=== PATIENT | male | born 1985 | race Caucasian/White ===

== ENCOUNTER 2017-08-26 15:44 | Emergency (ER) | payer SELFPAY ==
[2017-08-26 15:49] VITALS: BP 129/94
[2017-08-26] MEDS ORDERED: Ondansetron ODT TAB* 4 MG SL ONE (16:41)
[2017-08-26] MEDS ORDERED: HYDROcodone/ACETAMIN 5-325 MG* 1 TAB PO ONE ×2 (16:41→17:24)
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
== END 2017-08-26 17:40 | disposition home or self-care (01) ==
LOC: ED 15:44
DX: S01.01XA Laceration without foreign body of scalp, initial encounter (principal); R51 Headache; F17.210 Nicotine dependence, cigarettes, uncomplicated; W22.8XXA Striking against or struck by other objects, initial encounter; Y93.9 Activity, unspecified; Y92.9 Unspecified place or not applicable
CPT/HCPCS: 70450; 99282; A9270-GY

== ENCOUNTER 2017-09-03 18:25 | Emergency (ER) | payer SELFPAY ==
[2017-09-03 18:53] VITALS: BP 128/94
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
== END 2017-09-03 19:38 | disposition home or self-care (01) ==
LOC: ED 18:25
DX: S01.01XD Laceration without foreign body of scalp, subsequent encounter (principal); W20.8XXD Other cause of strike by thrown, projected or falling object, subsequent encounter; Z88.1 Allergy status to other antibiotic agents; F12.90 Cannabis use, unspecified, uncomplicated; F17.210 Nicotine dependence, cigarettes, uncomplicated

== ENCOUNTER 2018-11-22 08:34 | Emergency (ER) | payer SELFPAY ==
--- NOTE | 2018-11-22 09:16 | ED ---
Throat Pain/Nasal Congestion - HPI Summary HPI Summary: Pt is a 33 y/o male who presents to the ED c/o sore throat. His sx began 6 days ago and have been worsening. Pt first presented with sudden sharp throat pain, rated an 8/10 in severity. He also c/o congestion, wet cough, hoarseness, diaphoresis, chills, sinus pressure, and URRUTIA. Pt notes that the URRUTIA feels like it is radiating from his frontal sinuses. He also reports that he constantly feels like he is about to sneeze. Pt has been taking Dayquil and Theraflu with minimal relief. He denies any smoking. - History of Current Complaint Chief Complaint: EDFluSymptoms Time Seen by Provider: 11/22/18 08:54 Hx Obtained From: Patient Onset/Duration: Sudden Onset, Lasting Days - 6, Worse Since Severity: Severe - 8/10 Associated Signs And Symptoms: Positive: Hoarseness, Sinus Discomfort Cough: Productive - Allergies/Home Medications Allergies/Adverse Reactions: Allergies Allergy/AdvReac Type Severity Reaction Status Date / Time clindamycin Allergy GI Upset Verified 11/22/18 08:41 PMH/Surg Hx/FS Hx/Imm Hx Endocrine/Hematology History: Denies: Hx Diabetes, Hx Thyroid Disease Cardiovascular History: Denies: Hx Hypertension, Hx Pacemaker/ICD Respiratory History: Denies: Hx Asthma, Hx Chronic Obstructive Pulmonary Disease (COPD) GI History: Denies: Hx Ulcer History: Denies: Hx Dialysis, Hx Renal Disease Sensory History: Denies: Hx Hearing Aid Psychiatric History: Denies: Hx Panic Disorder - Immunization History Immunizations Up to Date: Yes Infectious Disease History: No Infectious Disease History: Denies: Hx Hepatitis, Hx Human Immunodeficiency Virus (HIV), History Other Infectious Disease, Traveled Outside the [place] in Last 30 Days - Family History Known Family History: Negative: Hypertension, Diabetes - Social History Alcohol Use: Daily Alcohol Amount: 1-2 beers Hx Substance Use: Yes Substance Use Type: Reports: None Substance Use Comment - Amount & Last Used: occassionally Hx Tobacco Use: No Smoking Status (MU): Never Smoked Tobacco Review of Systems Positive: Chills, Skin Diaphoresis Positive: Sore Throat, Other - congestion, sinus pressure, hoarseness Positive: Cough - wet Positive: Headache All Other Systems Reviewed And Are Negative: Yes Physical Exam - Summary Physical Exam Summary: Appearance: The patient is well-nourished in no acute distress and in no acute pain. Skin: The skin is warm and dry and skin color reflects adequate perfusion. HEENT: The head is normocephalic and atraumatic. The pupils are equal and reactive. The conjunctivae are clear and without drainage. Nares are congestion. Mouth reveals moist mucous membranes and the throat is erythematous without exudate. The external ears are intact. The ear canals are patent and without drainage. The tympanic membranes are intact. Neck: The neck is supple with full range of motion and non-tender. There are no carotid bruits. There is no neck vein distension. There is no lymphadenopathy. Respiratory: Chest is non-tender. Lungs are clear to auscultation and breath sounds are symmetrical and equal. Cardiovascular: Heart is regular rate and rhythm. There is no murmur or rub auscultated. There is no peripheral edema and pulses are symmetrical and equal. Abdomen: The abdomen is soft and non-tender. There are normal bowel sounds heard in all four quadrants and there is no organomegaly palpated. Musculoskeletal: There is no back tenderness noted. Extremities are non-tender with full range of motion. There is good capillary refill. There is no peripheral edema or calf tenderness elicited. Neurological: Patient is alert and oriented to person, place and time. The patient has symmetrical motor strength in all four extremities. Cranial nerves are grossly intact. Deep tendon reflexes are symmetrical and equal in all four extremities. Psychiatric: The patient has an appropriate affect and does not exhibit any anxiety or depression. Triage Information Reviewed: Yes Vital Signs On Initial Exam: Initial Vitals Temp Pulse Resp BP Pulse Ox 98 F 84 16 129/93 97 11/22/18 08:38 11/22/18 08:38 11/22/18 08:38 11/22/18 08:38 11/22/18 08:38 Vital Signs Reviewed: Yes Diagnostics - Vital Signs Vital Signs Temp Pulse Resp BP Pulse Ox 11/22/18 08:38 98 F 84 16 129/93 97 - Laboratory Lab Statement: Any lab studies that have been ordered have been reviewed, and results considered in the medical decision making process. EENT Course/Dx - Course Course Of Treatment: Mr. Miller presented with URI type symptoms for about a week. He was nontoxic in appearance is stable vital signs and his exam was consistent with a viral infection. I will treat him symptomatically with decongestants and cough medicine containing codeine. - Diagnoses Provider Diagnoses: URI (upper respiratory infection) Discharge - Sign-Out/Discharge Documenting (check all that apply): Patient Departure - Discharge Patient Received Moderate/Deep Sedation with Procedure: No - Discharge Plan Condition: Stable Disposition: HOME Prescriptions: Codeine Phosphate/Guaifenesin [Guaiatussin AC Liquid] 5 ml PO Q4HR #120 ml MDD 30 cc Loratadine/Pseudoephedrine [Claritin-D 12 Hour Tablet] 1 each PO BID PRN #[id number] PRN Reason: Congestion Patient Education Materials: Upper Respiratory Infection (ED) Referrals: [facility] [Outside] (2-3 days) Additional Instructions: RETURN TO THE ED WITH ANY NEW OR WORSENING SYMPTOMS. - Billing Disposition and Condition Condition: STABLE Disposition: Home - Attestation Statements Document Initiated by Scribe: Yes Documenting Scribe: Allison Simmons Provider For Whom Scribe is Documenting (Include Credential): Danial Gustafson MD Scribe Attestation: Allison Augustin, scribed for Danial Gustafson MD on 11/22/18 at 1252. Scribe Documentation Reviewed: Yes Provider Attestation: The documentation as recorded by the Allison gray accurately reflects the service I personally performed and the decisions made by me, Danial Gustafson MD Status of Scribe Document: Viewed
[2018-11-22 09:59] VITALS: BP 129/88
== END 2018-11-22 09:58 | disposition home or self-care (01) ==
LOC: ED 08:34
DX: J06.9 Acute upper respiratory infection, unspecified (principal); Z88.1 Allergy status to other antibiotic agents
CPT/HCPCS: 99282

== ENCOUNTER → 2019-01-10 | Emergency (ER) | payer SELFPAY ==
[~2019-01-10] MED LIST: HYDROcodone/ACETAMIN 5-325 MG* 1 TAB PO ONE
[2019-01-10 15:24] VITALS: BP 135/95
--- NOTE | 2019-01-10 17:54 | ED ---
Skin Complaint - HPI Summary HPI Summary: Patient is a 33-year-old male who presents emergency department for possible abscess to left upper buttocks times several days. Patient states he noticed a small painful bump on his left buttocks that has progressed in size. Patient states he squeezed area last night and purulent matter was expressed. Patient is not currently on antibiotics. He denies fever, chills, nausea, vomiting. Denies significant past medical history. Symptoms are mild in severity. Touching the affected area makes symptoms worse. Nothing makes symptoms better. - History of Current Complaint Chief Complaint: EDRashSkinAbscess Time Seen by Provider: 01/10/19 14:41 Stated Complaint: ABCESS PER PT Hx Obtained From: Patient Pain Intensity: 8 Pain Scale Used: 0-10 Numeric - Allergy/Home Medications Allergies/Adverse Reactions: Allergies Allergy/AdvReac Type Severity Reaction Status Date / Time clindamycin Allergy GI Upset Verified 01/10/19 13:41 PMH/Surg Hx/FS Hx/Imm Hx Previously Healthy: Yes Endocrine/Hematology History: Denies: Hx Diabetes, Hx Thyroid Disease Cardiovascular History: Denies: Hx Hypertension, Hx Pacemaker/ICD Respiratory History: Denies: Hx Asthma, Hx Chronic Obstructive Pulmonary Disease (COPD) GI History: Denies: Hx Ulcer History: Denies: Hx Dialysis, Hx Renal Disease Sensory History: Denies: Hx Hearing Aid Psychiatric History: Denies: Hx Panic Disorder Infectious Disease History: No Infectious Disease History: Denies: Hx Hepatitis, Hx Human Immunodeficiency Virus (HIV), History Other Infectious Disease, Traveled Outside the [place] in Last 30 Days - Family History Known Family History: Positive: Non-Contributory Negative: Hypertension, Diabetes - Social History Occupation: Employed Full-time Lives: With Family Alcohol Use: None Alcohol Amount: 1-2 beers Hx Substance Use: Yes Substance Use Type: Reports: None Substance Use Comment - Amount & Last Used: occassionally Hx Tobacco Use: No Smoking Status (MU): Never Smoked Tobacco Review of Systems Constitutional: Negative Negative: Fever, Chills Gastrointestinal: Negative Negative: Abdominal Pain, Vomiting, Nausea Positive: Other - abscess to right buttocks All Other Systems Reviewed And Are Negative: Yes Physical Exam Triage Information Reviewed: Yes Vital Signs On Initial Exam: Initial Vitals Temp Pulse Resp BP Pulse Ox 98.8 F 88 16 137/99 98 01/10/19 13:37 01/10/19 13:37 01/10/19 13:37 01/10/19 13:37 01/10/19 13:37 Vital Signs Reviewed: Yes Appearance: Positive: Well-Appearing - Pt. standing in room in NAD. Skin: Positive: Warm, Dry, Other - Noted to right upper buttocks there is a roughly 4cm in diameter area of erythema and induration. Small opening in middle. Mild surroudning erythema. Area is indurated and non fluctuant Head/Face: Positive: Normal Head/Face Inspection Eyes: Positive: Normal, EOMI Neck: Positive: Supple Neurological: Positive: Normal, CN Intact II-III Psychiatric: Positive: Affect/Mood Appropriate Diagnostics - Vital Signs Vital Signs Temp Pulse Resp BP Pulse Ox 01/10/19 15:22 98.3 F 81 16 135/95 99 01/10/19 13:37 98.8 F 88 16 137/99 98 - Laboratory Lab Statement: Any lab studies that have been ordered have been reviewed, and results considered in the medical decision making process. Course/Dx - Course Course Of Treatment: Patient presenting with abscess and cellulitis to left buttocks. There is no involvement of the gluteal cleft or perineum. Area is indurated and not fluctuant, I&D not performed. Will treat patient with Keflex and Bactrim for cellulitis. Advised patient to apply warm compresses at least 4 times a day. Return to the ER for increased redness, swelling, fever or if concerned. To follow-up with [facility] for recheck in 2-3 days. Patient understands and agrees with plan. - Differential Diagnoses - Skin Complaint Differential Diagnoses: Abscess, Cellulitis - Diagnoses Provider Diagnoses: Abscess and cellulitis of gluteal region Discharge - Sign-Out/Discharge Documenting (check all that apply): Patient Departure Patient Received Moderate/Deep Sedation with Procedure: No - Discharge Plan Condition: Good Disposition: HOME Prescriptions: Cephalexin CAP* [Keflex CAP*] 500 mg PO BID #20 cap Hydrocodone/Acetaminophen [Hydrocodone-Acetamin 5-325 mg] 1 each PO Q6H #8 tablet MDD 4 Sulfamethox/Trimethoprim DS* [Bactrim DS 800/160 TAB*] 1 tab PO BID #20 tab Patient Education Materials: Abscess (ED) Referrals: [facility] [Outside] Additional Instructions: Follow up with the [facility] for recheck on Sunday Take medication as directed Apply warm compresses Return to ER for fever, increased redness, swelling, vomiting, or if concerned - Billing Disposition and Condition Condition: GOOD Disposition: Home
== END | disposition home or self-care (01) ==
LOC: ED 13:33
DX: L03.317 Cellulitis of buttock (principal)
CPT/HCPCS: 99282

== ENCOUNTER 2019-10-30 19:50 | Emergency (ER) | payer OTHER ==
[2019-10-30] MEDS ORDERED: Morphine 4 MG/ML VIAL (1 ml) 4 MG/ML VIAL IV ONE (21:22)
[2019-10-30 22:02] LABS: ABS Basophils 0.1 10^3/ul (0-0.2); ABS Eosinophils 0.1 10^3/ul (0-0.6); ABS Lymphocytes 2.8 10^3/ul (1.0-4.8); ABS Monocytes 0.8 10^3/ul (0-0.8); ABS Neutrophils 4.5 10^3/ul (1.5-7.7); Eosinophil % 1.3 %; Hematocrit 43 % (42-52); Hemoglobin 14.8 g/dL (14.0-18.0); Lymphocyte % 33.5 %; Mean Corpuscular HGB Conc 35 g/dL (31-36); Mean Corpuscular Hemoglobin 30 pg (27-31); Mean Corpuscular Volume 87 fL (80-94); Mean Platelet Volume 7.3 fL (7.4-10.4); Nucleated Red Blood Cells % 0.1; Platelet Count 302 10^3/uL (150-450); Red Blood Count 4.92 10^6 /uL (4.18-5.48); Red Cell Distribution Width 13 % (10-15); White Blood Count 8.3 10^3/uL (3.5-10.8)
[2019-10-30 22:13] LABS: Albumin/Globulin Ratio 1.5 (1-3); BUN/Creatinine Ratio 15.3 (8-20); Calcium 9.6 mg/dL (8.6-10.3); EGFR African American 124.1 (>60); EGFR Non-African American 102.6 (>60); Globulin 3.4 g/dL (2-4); Potassium 3.7 mmol/L (3.5-5.0); Total Bilirubin 0.5 mg/dL (0.2-1.0); Total Protein 8.4 g/dL (6.4-8.9)
[2019-10-30] MEDS ORDERED: Iohexol 300* (CONTRAST) 10 ML SDV IV ONE (22:16)
[2019-10-30] MEDS ORDERED: HYDROcodone/ACETAMIN 5-325 MG* 1 TAB PO ONE (23:30)
--- NOTE | 2019-10-30 23:30 | ED ---
Adult Trauma - HPI Summary HPI Summary: 34-year-old male presents with left rib pain. He was snowboarding last week and ended up falling on some concrete. He states it hurts more when takes deep breath. He admits to left upper quadrant pain. Denies any blood in his urine. not on any blood thinners. Denies any cough. No fevers. No head injury. No loss conscious. Denies any neck pain. No other injury. took a dose of Percocet and ibuprofen but it has not been doing much for the pain. - History of Current Complaint Chief Complaint: EDChestWallPain Stated Complaint: POSS BROKEN RIBS PER PT Time Seen by Provider: 10/30/19 21:15 Pain Intensity: 10 - Allergy/Home Medications Allergies/Adverse Reactions: Allergies Allergy/AdvReac Type Severity Reaction Status Date / Time clindamycin Allergy GI Upset Verified 10/30/19 19:58 Home Medications: Home Medications Ibuprofen TAB* [Motrin TAB* 400 MG] 400 mg PO Q6H PRN 10/30/19 [History Confirmed 10/30/19] PMH/Surg Hx/FS Hx/Imm Hx Endocrine/Hematology History: Denies: Hx Diabetes, Hx Thyroid Disease Cardiovascular History: Denies: Hx Hypertension, Hx Pacemaker/ICD Respiratory History: Denies: Hx Asthma, Hx Chronic Obstructive Pulmonary Disease (COPD) GI History: Denies: Hx Ulcer History: Denies: Hx Dialysis, Hx Renal Disease Sensory History: Denies: Hx Hearing Aid Psychiatric History: Denies: Hx Panic Disorder Infectious Disease History: No Infectious Disease History: Denies: Hx Hepatitis, Hx Human Immunodeficiency Virus (HIV), History Other Infectious Disease, Traveled Outside the [place] in Last 30 Days - Family History Known Family History: Positive: Non-Contributory Negative: Hypertension, Diabetes - Social History Alcohol Use: Rare Alcohol Amount: 1-2 beers Hx Substance Use: Yes Substance Use Type: Reports: None Substance Use Comment - Amount & Last Used: occassionally Hx Tobacco Use: No Smoking Status (MU): Never Smoked Tobacco Review of Systems Negative: Fever Positive: Chest Pain - left side rib pain Positive: Shortness Of Breath. Negative: Cough All Other Systems Reviewed And Are Negative: Yes Physical Exam Triage Information Reviewed: Yes Vital Signs On Initial Exam: Initial Vitals Temp Pulse Resp BP Pulse Ox 97.9 F 88 16 116/98 97 10/30/19 19:55 10/30/19 19:55 10/30/19 19:55 10/30/19 19:55 10/30/19 19:55 Vital Signs Reviewed: Yes Appearance: Positive: Well-Appearing Skin: Positive: Warm, Dry Head/Face: Positive: Normal Head/Face Inspection Eyes: Positive: Normal, EOMI, SYL, Conjunctiva Clear ENT: Positive: Normal ENT inspection, Pharynx normal, TMs normal Respiratory/Lung Sounds: Positive: Clear to Auscultation, Breath Sounds Present , Other - tenderness left ribs, no step off Cardiovascular: Positive: Normal, RRR Abdomen Description: Positive: Soft, Other: - tenderness in LUQ Bowel Sounds: Positive: Present Musculoskeletal: Positive: Normal Neurological: Positive: Normal Psychiatric: Positive: Normal Procedures - Sedation Patient Received Moderate/Deep Sedation with Procedure: No Diagnostics - Vital Signs Vital Signs Temp Pulse Resp BP Pulse Ox 10/30/19 21:28 16 10/30/19 19:55 97.9 F 88 16 116/98 97 - Laboratory Lab Results: Lab Results 10/30/19 10/30/19 Range/Units 21:49 21:49 WBC 8.3 (3.5-10.8) 10^3/uL RBC 4.92 (4.18-5.48) 10^6 /uL Hgb 14.8 (14.0-18.0) g/dL Hct 43 (42-52) % MCV 87 (80-94) fL MCH 30 (27-31) pg MCHC 35 (31-36) g/dL RDW 13 (10-15) % Plt Count 302 (150-450) 10^3/uL MPV 7.3 L (7.4-10.4) fL Neut % (Auto) 54.9 % Lymph % (Auto) 33.5 % [place] % (Auto) 9.7 % Eos % (Auto) 1.3 % Baso % (Auto) 0.6 % Absolute Neuts (auto) 4.5 (1.5-7.7) 10^3/ul Absolute Lymphs (auto) 2.8 (1.0-4.8) 10^3/ul Absolute Monos (auto) 0.8 (0-0.8) 10^3/ul Absolute Eos (auto) 0.1 (0-0.6) 10^3/ul Absolute Basos (auto) 0.1 (0-0.2) 10^3/ul Absolute Nucleated RBC 0.0 10^3/ul Nucleated RBC % 0.1 Sodium 136 (135-145) mmol/L Potassium 3.7 (3.5-5.0) mmol/L Chloride 103 (101-111) mmol/L Carbon Dioxide 24 (22-32) mmol/L Anion Gap 9 (2-11) mmol/L BUN 13 (6-24) mg/dL Creatinine 0.85 (0.67-1.17) mg/dL Est GFR ( Amer) 124.1 (>60) Est GFR (Non-Af Amer) 102.6 (>60) BUN/Creatinine Ratio 15.3 (8-20) Glucose 95 (70-100) mg/dL Calcium 9.6 (8.6-10.3) mg/dL Total Bilirubin 0.50 (0.2-1.0) mg/dL AST 24 (13-39) U/L ALT 25 (7-52) U/L Alkaline Phosphatase 58 (34-104) U/L Total Protein 8.4 (6.4-8.9) g/dL Albumin 5.0 (3.2-5.2) g/dL Globulin 3.4 (2-4) g/dL Albumin/Globulin Ratio 1.5 (1-3) Result Diagrams: 10/30/19 21:49 10/30/19 21:49 Lab Statement: Any lab studies that have been ordered have been reviewed, and results considered in the medical decision making process. - CT chest, abd CT Interpretation Completed By: Radiologist Summary of CT Findings: IMPRESSION: There is acute nondisplaced fracture of the left 4th ribs at the anterolateral aspect. Adult Trauma Course/Dx - Course Course Of Treatment: 34-year-old male presents with left rib pain. He was snowboarding last week and ended up falling on some concrete. He states it hurts more when takes deep breath. He admits to left upper quadrant pain. Denies any blood in his urine. not on any blood thinners. Denies any cough. No fevers. No head injury. No loss conscious. Denies any neck pain. No other injury. took a dose of Percocet and ibuprofen but it has not been doing much for the pain. On exam tenderness over left ribs. Tenderness in left upper quadrant. CT shows left fourth rib fracture. Gave short course of pain medication. Told to take deep breaths throughout the day. Told to follow up primary. Patient understands and agrees plan. - Diagnoses Differential Diagnosis/HQI/PQRI: Positive: Contusion(s), Fracture, Sprain Provider Diagnoses: Rib fracture Discharge ED - Sign-Out/Discharge Documenting (check all that apply): Patient Departure - Discharge Plan Condition: Good Disposition: HOME Prescriptions: HYDROcodone/ACETAMIN 5-325 MG* [Kemp 5-325 TAB*] 1 tab PO Q6H PRN #16 tab MDD 4 PRN Reason: Pain - Severe Ibuprofen TAB* [Motrin TAB* 800 MG] 800 mg PO Q8H #20 tab Patient Education Materials: Rib Fracture (ED) Referrals: No Primary Care Phys,NOPCP [Primary Care Provider] - Additional Instructions: Use ibuprofen or tyenlol for pain every 6 hours and use norco for breakthrough pain every 6 hours Ice, elevate take deep breath throughout the day follow up with primary Return to ED if develop any new or worsening symptoms - Billing Disposition and Condition Condition: GOOD Disposition: Home
[2019-10-30 23:44] VITALS: BP 0/0
== END 2019-10-30 23:43 | disposition home or self-care (01) ==
LOC: ED 19:50
DX: S22.32XA Fracture of one rib, left side, initial encounter for closed fracture (principal); W19.XXXA Unspecified fall, initial encounter; Y93.23 Activity, snow (alpine) (downhill) skiing, snowboarding, sledding, tobogganing and snow tubing; Y92.9 Unspecified place or not applicable; Z88.1 Allergy status to other antibiotic agents
CPT/HCPCS: 36415; 71260; 74177; 80053; 85025; 96374; 99282; J2270; Q9967